=== PATIENT | male | born 1940 | race Caucasian/White ===

== ENCOUNTER 2024-10-19 10:16 | Emergency (ER) | payer MEDICARE ==
[2024-10-19 10:26] VITALS: BP 155/44; PULSE 84; RESP 18; TEMP 97.3; O2SAT 96
[2024-10-19] MEDS ORDERED: NORCO 5/325 MG ONE ×2 (10:28→11:21)
[2024-10-19] MEDS: NORCO 5/325 MG PO ONE ×2 (10:29→11:22)
--- NOTE | 2024-10-19 10:31 | ERPHSYRPT ---
- History of Present Illness Time Seen by Provider: 10/19/24 10:19 Source: patient Exam Limitations: no limitations Physician History: Pt states he slipped on the ice yesterday in his driveway at about 2 PM and fell with resultant pain in his right wrist; denies numbness. Allergies/Adverse Reactions: No Known Drug Allergies Allergy (Unverified 05/05/15 09:38) Home Medications: Atorvastatin Calcium [Lipitor] 80 mg DAILY 05/05/15 [History] Digoxin 0.125 mg Tablet [Lanoxin 0.125MG TABLET] 0.125 mg DAILY 05/05/15 [History] Metoprolol Tartrate 25 mg [Lopressor 25MG Tab] 25 mg BID 05/05/15 [History] Multivitamin W/Iron, Minerals [Centrum] 236 ml DAILY 05/05/15 [History] Niacin (Inositol Niacinate) [Niacin 500 mg Capsule] 500 mg QID 05/05/15 [History] Primidone 50 MG [Mysoline 50Mg] 100 mg BID 05/05/15 [History] Rivaroxaban [Xarelto] 10 mg DAILY 05/05/15 [History] Hx Influenza Vaccination/Date Given: Yes Hx Pneumococcal Vaccination/Date Given: Yes - Review of Systems Musculoskeletal: Joint Pain (right wrist pain since yesterday) - Past Medical History Pertinent Past Medical History: Yes Neurological History: No Pertinent History Cardiac History: High Cholesterol, Hypertension Respiratory History: Sleep Apnea Endocrine Medical History: No Pertinent History Musculoskeletal History: Osteoarthritis Other Medical History: PSH: KURTIS PLACEMENT IN L [place], L WRIST EXTERNAL FIXATOR, DEVIATED SEPTUM SURGERY, APPENDECTOMY, - Past Surgical History Past Surgical History: Yes Cardiac: Cardiac Catheterization, Cardiac Stent Gastrointestinal: Appendectomy Significant Family History: no pertinent family hx - Social History Smoking Status: Never smoker Exposure to second hand smoke: No Drug Use: none Patient Lives Alone: No - Nursing Vital Signs Nursing Vital Signs: Initial Vital Signs Temperature 97.3 F 10/19/24 10:19 Pulse Rate 84 10/19/24 10:19 Respiratory Rate 18 10/19/24 10:19 Blood Pressure 155/44 10/19/24 10:19 O2 Sat by Pulse Oximetry 96 10/19/24 10:19 Pain Scale Pain Intensity 8 - Physical Exam General Appearance: alert Shoulder Exam: normal ROM Elbow/Forearm Exam: normal ROM Wrist Exam: limited ROM, soft tissue tenderness, swelling (mild) Hand Exam: normal inspection Neuro/Tendon Exam: normal sensation Mental Status Exam: alert - Course Nursing assessment & vital signs reviewed: Yes - Radiology Exams Right Wrist X-ray Interpretation: Discussed w/ radiologist, No Fracture Ordered Tests: Active Orders 24 hr Category Date Time Status WRIST (MIN 3 VIEWS) Stat Exams 10/19/24 10:26 Completed Medication Summary Discontinued Medications Generic Name Dose Route Start Last Admin Trade Name Gabe PRN Reason Stop Dose Admin Hydrocodone Bitart/Acetaminophen 2 tab 10/19/24 10:26 10/19/24 10:29 Hydrocodone/Apap 5/325 1 Tab Tablet PO 10/19/24 10:27 2 tab STAT ONE Administration Hydrocodone Bitart/Acetaminophen Confirm 10/19/24 10:28 Hydrocodone/Apap 5/325 1 Tab Tablet Administered 10/19/24 10:29 Dose 2 tab .ROUTE .STK-MED ONE - Progress Progress: unchanged Counseled pt/family regarding: diagnosis, need for follow-up, rad results Medical Desision Making - Diagnostic Testing Diagnostic test were ordered, analyzed, and reviewed by me: Yes Radiological Interpretation: Discussed w/ radiologist - Departure Departure Disposition: Home Clinical Impression: Right wrist sprain Condition: Stable Critical Care Time: No Referrals: VILMA CRUZ MD [Primary Care Provider] - Follow up/PCP as directed Instructions: Wrist Sprain ED Additional Instructions: Follow up with private doctor today. Wear right wrist splint for the next 4 days. Wear right arm sling for comfort.
--- NOTE | 2024-10-19 10:50 | XRAY ---
Indication: Pain following fall. Comparison: None 3 view right wrist demonstrates osteopenia, radiocarpal degenerative joint space narrowing, and advanced 1st metacarpal multangular degenerative changes. 4 mm heterotopic ossification posterior to lunate either degenerative vs sequela old injury/inflammation. No other bony, articular, or soft tissue abnormalities.
== END 2024-10-19 11:41 | disposition home or self-care (01) ==
LOC: ED 10:16
DX: S63.501A Unspecified sprain of right wrist, initial encounter (principal); W00.0XXA Fall on same level due to ice and snow, initial encounter; Y92.007 Garden or yard of unspecified non-institutional (private) residence as the place of occurrence of the external cause; E78.5 Hyperlipidemia, unspecified; I10 Essential (primary) hypertension; Z79.01 Long term (current) use of anticoagulants; Z79.899 Other long term (current) drug therapy
CPT/HCPCS: 73110; 99283; L3908; A9270-GY